=== PATIENT | female | born 1990 | race Two or more races ===

== ENCOUNTER → 2019-10-16 | Outpatient (REF) | payer BC ==
[~2019-10-16] MED LIST: COLA100C5 PO; IBUP600T42 PO; IRON65TA PO; LORT5TAB PO; PRENTAB16 PO; PROM50TA4 PO
[2019-10-16 17:36] LABS: HIV 1&2 SCREEN CENTAUR NEGATIVE (NEGATIVE)
[2019-10-16 18:48] LABS: CHLAMYDIA DNA AMPLIFICATION NEGATIVE (NEGATIVE); GC DNA AMPLIFICATION NEGATIVE (NEGATIVE)
== END ==
LOC: M SFHCLERA 11:02
PROVIDERS: ATTEND Nurse Practitioner Family
DX: Z11.3 Encounter for screening for infections with a predominantly sexual mode of transmission (principal)

== ENCOUNTER 2020-06-19 23:41 | Emergency (ER) | payer BC ==
[~2020-06-19] VITALS: Ht 149.9 cm; Wt 65.8 kg
[2020-06-20] MEDS ORDERED: NS 1,000 ML IV ONE (00:15)
[2020-06-20 00:27] LABS: BASO # 0.1 10^3/uL (0.0-0.2); BASO % 0.6 % (0.0-1.0); EOS # 0.1 10^3/uL (0.0-0.5); EOS % 1.2 % (0.0-3.0); HEMATOCRIT 37.1 % (36.0-47.0); HEMOGLOBIN 12.3 g/dl (12.0-15.5); LYMPH # 2.1 10^3/uL (1.5-5.0); LYMPH % 27.4 % (24.0-44.0); MEAN CORPUSCULAR HEMOGLOBIN 27.3 pg (27.0-33.0); MEAN CORPUSCULAR HGB CONC 33.2 g/dl (32.0-36.5); MEAN CORPUSCULAR VOLUME 82.3 fl (80.0-96.0); MONO # 0.6 10^3/uL (0.0-0.8); MONO % 7.2 % (0.0-5.0); NEUTROPHILS # 4.9 10^3/uL (1.5-8.5); NEUTROPHILS % 63.1 % (36.0-66.0); PLATELET COUNT, AUTOMATED 189 10^3/uL (150-450); RED BLOOD COUNT 4.51 10^6/uL (4.00-5.40); WHITE BLOOD COUNT 7.8 10^3/uL (4.0-10.0)
[2020-06-20 00:31] LABS: APPEARANCE, URINE HAZY (CLEAR); BACTERIA, URINE AUTO NEGATIVE (NEGATIVE); BILIRUBIN, URINE AUTO NEGATIVE (NEGATIVE); BLOOD, URINE BLOOD NEGATIVE (NEGATIVE); COLOR, URINE YELLOW (YELLOW); GLUCOSE, URINE (UA) AUTO NEGATIVE (NEGATIVE); KETONE, URINE AUTO 2+ mg/dL (NEGATIVE); LEUKOCYTE ESTERASE, URINE AUTO NEGATIVE (NEGATIVE); MUCUS, URINE LARGE (NEGATIVE); NITRITE, URINE AUTO NEGATIVE (NEGATIVE); PROTEIN, URINE AUTO 2+ mg/dL (NEGATIVE); RBC, URINE AUTO 2 /HPF (0-3); SPECIFIC GRAVITY URINE AUTO 1.024 (1.002-1.035); SQUAMOUS EPITHELIAL CELL UR AU 4 /HPF (0-6); TRANSITIONAL EPITHELIAL AUTO <1 /HPF; WBC, URINE AUTO 2 /HPF (0-3)
--- NOTE | 2020-06-20 01:10 | REPVR ---
PROCEDURE INFORMATION: Exam: US First Trimester, Transabdominal Exam date and time: 06/20/2020 12:45 AM Age: 29 years old Clinical indication: complicated by abdominal or pelvic pain; Lower; First trimester; Gestational age or lmp: 03/16/20; ; Additional info: Cramping TECHNIQUE: Imaging protocol: Real-time transabdominal obstetrical ultrasound of the maternal pelvis and a first trimester , less than 14 weeks 0 days, with image documentation. COMPARISON: No relevant prior studies available. FINDINGS: Gestation: Single live intrauterine gestation. pole measures 5.9 cm. Embryonic/ heart rate: cardiac activity is detected at 155 bpm. Placenta: Unremarkable. No subchorionic bleed. Amniotic fluid: Amniotic fluid is normal for gestational age. BIOMETRY: Gestational age (AUA): Estimated gestational age is 12 weeks and 3 days. MATERNAL: Uterus: Unremarkable. Cervix: Unremarkable. Right adnexa: Right ovary measures 7.2 by 4.2 by 6.2 cm. There is a simple right ovarian cyst measuring 6.2 x 4.3 x 5.8 cm. No evidence of right ovarian torsion. Left adnexa: Left ovary measures 2.5 x 3.2 x 2.4 cm. Left ovary appears within normal limits. No evidence of left ovarian torsion. Intraperitoneal space: No intraperitoneal free fluid. IMPRESSION: 1. Single live intrauterine gestation measuring 12 weeks and 3 days as above. 2. Simple right ovarian cyst measuring up to 6.2 cm. Electronically signed by: Black Wang On 06/20/2020 01:09:50 AM
[2020-06-20 01:42] LABS: BLOOD UREA NITROGEN 8 MG/DL (7-18); CALCIUM LEVEL 9.3 MG/DL (8.5-10.1); CARBON DIOXIDE LEVEL 24 MEQ/L (21-32); CHLORIDE LEVEL 106 MEQ/L (98-107); GLOMERULAR FILTRATION RATE > 60.0 (>60); GLUCOSE, FASTING 104 MG/DL (70-100); HCG, SERUM QUANTITATIVE 58084 MIU/ML; POTASSIUM SERUM 3.1 MEQ/L (3.5-5.1); SODIUM LEVEL 138 MEQ/L (136-145)
[2020-06-20] MEDS ORDERED: FLAG500T PO (02:11)
[2020-06-20] MEDS ORDERED: REGL10TA6 PO (02:13)
[2020-06-20] MEDS ORDERED: metroNIDAZOLE (FLAGYL) 500MG TABLET PO ONE (02:15)
[2020-06-20] MEDS ORDERED: METOCLOPRAMIDE INJ 10MG/2ML VIAL (J2765 PER 1) IV ONE (02:15)
[2020-06-20 02:54] VITALS: BP 125/72
[2020-06-20 03:30] LABS: CHLAMYDIA DNA AMPLIFICATION NEGATIVE (NEGATIVE); GC DNA AMPLIFICATION NEGATIVE (NEGATIVE)
== END 2020-06-20 02:56 | disposition home or self-care (01) ==
LOC: M ED 23:41
DX: O23.591 Infection of other part of genital tract in pregnancy, first trimester (principal); O99.611 Diseases of the digestive system complicating pregnancy, first trimester; K59.00 Constipation, unspecified; O26.811 Pregnancy related exhaustion and fatigue, first trimester; R42 Dizziness and giddiness; O34.81 Maternal care for other abnormalities of pelvic organs, first trimester; Z3A.12 12 weeks gestation of pregnancy; Z79.899 Other long term (current) drug therapy
CPT/HCPCS: 76811; 80048; 81001; 84702; 85025; 86901; 87086; 87210; 87491; 87591; 93976; 96361; 96374; 99284; J2765

== ENCOUNTER 2020-06-22 17:53 | Emergency (ER) | payer BC ==
[~2020-06-22] VITALS: Ht 149.9 cm; Wt 65.6 kg
[~2020-06-22 17:53] MED LIST changes: +FLAG500T PO; +REGL10TA6 PO
[2020-06-22 20:58] VITALS: BP 135/70
== END 2020-06-22 21:06 | disposition home or self-care (01) ==
LOC: M ED 17:53
DX: O99.342 Other mental disorders complicating pregnancy, second trimester (principal); F32.9 Major depressive disorder, single episode, unspecified; O21.1 Hyperemesis gravidarum with metabolic disturbance; Z3A.14 14 weeks gestation of pregnancy